=== PATIENT | male | born 1955 | race Caucasian/White ===

== ENCOUNTER 2018-09-29 16:25 | Emergency (ER) | payer BC ==
[2018-09-29 16:41] VITALS: BP 152/95
--- NOTE | 2018-09-29 16:42 | UC ---
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 When his son went to speak with him, he was back on the ladder , reported the fall, but seemed mentally confused and repetitive in his speech. Keeps repeating that he fell, but has no memory of drive to his son's house. Appears somnolent and is repetitive in his speech. Complaining of low back pain. - History Of Current Complaint Stated Complaint: HEAD INJURY Hx Obtained From: Patient, Family/Rod Placer - here with his Onset/Duration: Sudden Onset, Lasting Minutes - occurred about 30 minutes prior to arrival, now about 45 minutes ago. Severity Currently: Moderate Severity Initially: Moderate Character: Throbbing Aggravating Factor(s): Nothing Alleviating Factor(s): Nothing Associated Signs And Symptoms: Positive: LOC Duration Unknown - possible LOC, fall unwitnessed., Memory Loss - cannot remember events of approximately the last 2 hours, Neck Pain, Other - back pain - Risk Factors SDH Risk Factor: Negative - Allergies/Home Medications Allergies/Adverse Reactions: Allergies Allergy/AdvReac Type Severity Reaction Status Date / Time amoxicillin Allergy Intermediate Hives Verified 09/29/18 16:32 Home Medications: Home Medications Aspirin 81 mg CHEW TAB* [Aspirin Low Dose TAB*] 81 mg PO DAILY 09/29/18 [ History Confirmed 09/29/18] PMH/Surg Hx/FS Hx/Imm Hx Previously Healthy: Yes - Surgical History Surgical History: None - Family History Known Family History: Positive: Non-Contributory Negative: Respiratory Disease - Social History Occupation: Employed Full-time - manager dairy Alcohol Use: Occasionally Substance Use Type: None Smoking Status (MU): Never Smoked Tobacco - Immunization History Most Recent Influenza Vaccination: MAR 2016 Most Recent Tetanus Shot: approx 4 yrs ago Review of Systems All Other Systems Reviewed And Are Negative: Yes Constitutional: Positive: Fatigue Eyes: Negative: Blurred Vision, Diplopia, Photophobia ENT: Negative: Epistaxis Respiratory: Positive: Negative Cardiovascular: Positive: Negative Gastrointestinal: Positive: Negative Genitourinary: Positive: Negative Motor: Positive: Other - pain in lumbar spine reported. Musculoskeletal: Positive: Arthralgia Neurological: Positive: Headache Psychological: Positive: Negative Is Patient Immunocompromised?: No Physical Exam Triage Information Reviewed: Yes Completion Of Physical Exam Limited Due To: Altered Mental Status - mildly somnolent; answers questions slowly and correctly. Appearance: Well-Appearing, Well-Nourished, Pain Distress - moderate Vital Signs Reviewed: Yes Eye Exam: Other - ANALY, normal EOM Eyes: Positive: Conjunctiva Clear ENT: Positive: Pharynx normal Dental Exam: Normal Neck exam: Other - collar applied and ROM not assessed. Respiratory: Positive: Lungs clear, Normal breath sounds Cardiovascular Exam: Other - hypertensive Cardiovascular: Positive: RRR, No Murmur Bowel Sounds: Positive: Present Neurological Exam: Other - No pronator drift Neurological: Positive: Alert, Muscle Tone Normal Skin Exam: Normal Head Injury Course/Dx - Course Course Of Treatment: Advised transfer to ER after a fall from estimated 5 feet, with mild confusion and retrograde amnesia. - Differential Dx/Diagnosis Differential Diagnosis/HQI/PQRI: Cerebral Contusion, Cervical Sprain, Concussion With LOC, Intracranial Bleed Provider Diagnosis: Head injury due to trauma - Physician Notification/Consults Discussed Patient Care With: Avril Garcia NP Time Discussed With Above Provider: 16:40 Instructed by Provider To: Transfer - to [facility] Discharge - Sign-Out/Discharge Documenting (check all that apply): Patient Departure All imaging exams completed and their final reports reviewed: No Studies - Discharge Plan Condition: Guarded Disposition: TRANS HIGHER LVL OF CARE FAC Referrals: Lucian Ruby MD [Primary Care Provider] - - Billing Disposition and Condition Condition: GUARDED Disposition: Trans Higher Lvl of Care Fac
== END 2018-09-29 16:45 | disposition short-term general hospital (02) ==
LOC: UCCORT 16:25
DX: S09.90XA Unspecified injury of head, initial encounter (principal); Z88.0 Allergy status to penicillin; Z79.82 Long term (current) use of aspirin; W11.XXXA Fall on and from ladder, initial encounter; Y93.89 Activity, other specified; Y92.9 Unspecified place or not applicable
CPT/HCPCS: 99203; G0463